=== PATIENT | female | born 1975 | race Caucasian/White ===

== ENCOUNTER → 2020-07-06 | Outpatient (CLI) | payer SELFPAY | LOC: M LABSMTC 18:43 | PROVIDERS: ATTEND Pediatrics | DX: Z11.59 Encounter for screening for other viral diseases (principal) ==

== ENCOUNTER → 2021-11-08 | Outpatient (CLI) | payer MEDICARE, OTHER | LOC: M RAD 07:13 | PROVIDERS: ATTEND Family Medicine | DX: R10.30 Lower abdominal pain, unspecified (principal) ==